=== PATIENT | male | born 1980 | race Caucasian/White ===

== ENCOUNTER 2018-11-10 11:09 | Emergency (ER) | payer OTHER ==
[2018-11-10] MEDS ORDERED: Acetaminophen 325 MG TAB ONE (12:02)
[2018-11-10 12:25] LABS: Band 2 % (5-11); Hemoglobin 15.8 g/dL (14.0-18.0); Lymphocytes 3 % (21-51); MDiff Complete? YES; Mean Corpuscular Hemoglobin 30.6 pg (27.0-31.0); Mean Corpuscular Volume 87.6 fL (78.0-98.0); Mean Platelet Volume 8.2 fL (7.4-10.4); Monocytes 11 % (0-10); Neutrophil 84 % (42-75); Platelet Count 293 thou/uL (130-400); Platelet Morphology Comment Appears Adequate; RBC Distribution Width 12.5 % (11.5-14.5); RBC Morphology Normal; Red Blood Cell (RBC) Count 5.16 mill/uL (4.70-6.10); White Blood Cell (WBC) Count 10.8 thou/uL (4.8-10.8)
[2018-11-10] MEDS ORDERED: Oseltamivir 75 MG CAP ONE (13:08)
--- NOTE | 2018-11-10 18:09 | RAD ---
CHEST TWO VIEWS 11/10/18 The heart is normal in size. There are no lobar consolidations or effusions. there might be a little scarring in the right upper lobe but this is uncertain. The trachea is midline. IMPRESSION: No acute thoracic findings. POS: HOME
== END 2018-11-10 13:18 | disposition home or self-care (01) ==
LOC: BURERS 11:09
DX: J11.1 Influenza due to unidentified influenza virus with other respiratory manifestations (principal); G80.9 Cerebral palsy, unspecified
CPT/HCPCS: 71046; 85025; 87804